=== PATIENT | female | born 1995 | race American Indian/Alaskan Native ===

== ENCOUNTER 2019-05-01 12:14 | Emergency (ER) | payer SELFPAY ==
[2019-05-01 13:49] VITALS: BP 128/71
--- NOTE | 2019-05-01 14:01 | Emergency Department Report ---
Chief Complaint: Upper Respiratory Infection Stated Complaint: SORE THROAT/YASMEEN Time Seen by Provider: 05/01/19 13:51 - HPI History of Present Illness: 23 y/o female presents to ED c/o of spontaneous sore throat which occurs off and on especially when at work at [employer] around a lot of smoke. no fever or hemoptysis. No chest pain or coryza. no wheezing or dysphagia. - ROS Review of Systems: all symptoms negative except as in HPI - Exam Vital Signs: Vital Signs 05/01/19 13:47 Temperature 98.4 F Pulse Rate 83 Respiratory 16 Rate Blood Pressure 128/71 O2 Sat by Pulse 98 Oximetry Physical Exam: GENERAL APPEARANCE: AxOx4, generally well-appearing /F, no acute distress. HEENT: NC, AT. MMM. EOMI, clear conjunctiva, oropharynx clear. pharynx red and mild edema. airway patent NECK: Supple without lymphadenopathy. No stiffness or restricted ROM. HEART: Normal rate and regular rhythm, LUNGS: CTAB, moving air well. No crackles or wheezes are heard. ABDOMEN: Soft, nontender, nondistended with good bowel sounds heard. BACK: No CVAT, no obvious deformity. EXTREMITIES: Without cyanosis, clubbing or edema. NEUROLOGICAL: Grossly nonfocal. Alert and oriented, moving all 4 extremities. CN not formally tested but appear grossly intact. Observed to ambulate with normal gait. Skin: Warm and dry without any rash. MSE screening note: Focused history and physical exam performed. Due to findings the following was ordered: No history of immunocompromise. Nontoxic appearance. Patient euvolemic with no trismus. No airway compromise. Able to tolerate PO. Given History and Exam I have low suspicion for this presentation being caused by [employer], RPA, Lud[place]igs, Epiglottitis or Bacterial Tracheitis, EBV, acute HIV, Strep throat. Rx: Conservative care Disposition: Discharge home with prompt outpatient PCP follow up; return precautions discussed. ED Disposition for MSE Clinical Impression: Pharyngitis Disposition: MED SCREENING EXAM-LEFT Is pt being admited?: No Does the pt Need Aspirin: No Condition: Stable Instructions: Pharyngitis (ED)
== END 2019-05-01 19:45 | disposition left against medical advice (07) ==
LOC: ED 12:14
DX: J02.9 Acute pharyngitis, unspecified (principal); Z91.013 Allergy to seafood

== ENCOUNTER 2020-07-14 14:41 | Emergency (ER) | payer MEDICAID ==
[2020-07-14 15:08] VITALS: BP 104/67
[2020-07-14] MEDS ORDERED: IBUPROFEN 800 MG TAB PO ONE (15:10)
[2020-07-14] MEDS ORDERED: ACETAMINOPHEN 500 MG TAB PO ONE (15:10)
--- NOTE | 2020-07-14 15:13 | Event Note ---
ED Screening Note Date of service: 07/14/20 Time: 15:11 ED Screening Note: 24-year-old immunocompetent female patient presents to the emergency department with complaints of diminished appetite and nausea for 2 days. Prior to the onset of her symptoms, she was experiencing a sore throat, which has largely resolved. However, she still does experience discomfort in her throat with swallowing. She also endorses burning with urination. She has been able to tolerate fluids. No known sick contacts. No current steroid antibiotic use. Patient is noted to be febrile and tachycardic in triage. Tylenol and Motrin ordered. Contrary to the patient's medical record, she does not have heart problems. General: Awake, appropriately interactive, no acute distress. ENT: Small white papules noted to the tonsils bilaterally. No tonsillar enlargement or erythema. Uvula is midline and nonedematous. Neck: Supple. Full range of motion intact. Cardiovascular: Tachycardic. Normal peripheral perfusion. Pulmonary: Clear to auscultation bilaterally. No respiratory distress. Patient is speaking normally without use of accessory muscles. Skin: No apparent rashes or lesions. Neurological: No facial asymmetry. Speech is clear. Follows commands. Patient is alert and oriented. Musculoskeletal: Moves all four extremities spontaneously with normal range of motion. Psych: Cooperative. Appropriate mood and affect. This initial assessment/diagnostic orders/clinical plan/treatment(s) is/are s ubject to change based on patients health status, clinical progression and re- assessment by fellow clinical providers in the ED. Further treatment and workup at subsequent clinical providers discretion. Patient/guardian urged not to elope from the ED as their condition may be serious if not clinically assessed and managed.
[2020-07-14 15:46] LABS: HCG Qualitative,Urine Negative (Negative)
[2020-07-14 15:57] LABS: Bilirubin,Urine NEG (Negative); Blood,Urine NEG (Negative); Color,Urine Yellow (Yellow); Mucus,Urine 1+ /HPF
--- NOTE | 2020-07-14 16:45 | Emergency Department Report ---
ED General Adult HPI - General Chief complaint: Medical Clearance Stated complaint: HEART PROBLEMS/TROUBLE EATING/DRINKING Time Seen by Provider: 07/14/20 16:39 Source: patient Mode of arrival: Ambulatory Limitations: No Limitations - Related Data Previous Rx's Medication Instructions Recorded Last Taken Type Ibuprofen [Motrin] 800 mg PO Q8HR PRN #20 tablet 09/21/19 Unknown Rx cephALEXin [Keflex] 500 mg PO Q12HR 10 Days cap 07/14/20 Unknown Rx Allergies Allergy/AdvReac Type Severity Reaction Status Date / Time shellfish derived Allergy Swelling Verified 07/14/20 15:04 ED Review of Systems ROS: Stated complaint: HEART PROBLEMS/TROUBLE EATING/DRINKING Other details as noted in HPI ED Past Medical Hx - Past Medical History Previous Medical History?: No - Surgical History Past Surgical History?: No - Social History Smoking Status: Never Smoker Substance Use Type: None - Medications Home Medications: Home Medications Medication Instructions Recorded Confirmed Last Taken Type Ibuprofen [Motrin] 800 mg PO Q8HR PRN #20 tablet 09/21/19 Unknown Rx cephALEXin [Keflex] 500 mg PO Q12HR 10 Days cap 07/14/20 Unknown Rx ED Physical Exam - General Limitations: No Limitations ED Course Vital Signs 07/14/20 15:05 Temperature 100.4 F H Pulse Rate 105 H Respiratory 16 Rate Blood Pressure 104/67 O2 Sat by Pulse 99 Oximetry Critical care attestation.: If time is entered above; I have spent that time in minutes in the direct care of this critically ill patient, excluding procedure time. ED Disposition Clinical Impression: Strep pharyngitis Urinary tract infection Qualifiers: Urinary tract infection type: site unspecified Hematuria presence: with hematuria Qualified Code(s): N39.0 - Urinary tract infection, site not specified; R31.9 - Hematuria, unspecified Disposition: DC-01 TO HOME OR SELFCARE Is pt being admited?: No Does the pt Need Aspirin: No Condition: Stable Instructions: Strep Throat, Adult, [id number], Urinary Tract Infection, Adult Additional Instructions: Take Tylenol every 4 hours and Motrin every 8 hours as needed for pain/fever. Take Keflex with food as directed. Salt water gargles as needed. Rest. Drink plenty fluids. Wash hands frequently to prevent disease transmission. Do not share food or drinks with others. Follow-up with your primary care provider this week. Call tomorrow to schedule an appointment. Return to the emergency department immediately for new or worsening symptoms. Specifically, return to the emergency department immediately for difficulty breathing, worsening sore throat, dehydration, mental status changes, difficulty using the bathroom, back pain, or any other concerns. Prescriptions: cephALEXin [Keflex] 500 mg PO Q12HR 10 Days cap Referrals: DANETTE CORONADO MD [Staff Physician] - 3-5 Days Time of Disposition: 16:45
--- NOTE | 2020-07-14 17:38 | Emergency Department Report ---
ED General Adult HPI - General Chief complaint: Medical Clearance Stated complaint: HEART PROBLEMS/TROUBLE EATING/DRINKING Time Seen by Provider: 07/14/20 16:39 Source: patient Mode of arrival: Ambulatory Limitations: No Limitations - History of Present Illness Initial comments: 24-year-old immunocompetent female patient presents to the emergency department with complaints of diminished appetite and nausea for 2 days. Prior to the onset of her symptoms, she was experiencing a sore throat, which has largely resolved. However, she still does experience discomfort in her throat with swallowing. She also endorses burning with urination. She has been able to tolerate fluids. No known sick contacts. No current steroid antibiotic use. No recent travel. Denies neck stiffness, headache, ear pain, wheezing, shortness of breath, vomiting, diarrhea, abdominal pain, back pain. Denies all other complaints at this time. Severity scale (0 -10): 0 - Related Data Previous Rx's Medication Instructions Recorded Last Taken Type Ibuprofen [Motrin] 800 mg PO Q8HR PRN #20 tablet 09/21/19 Unknown Rx Phenazopyridine HCl [Azo Urinary 2 tab PO TID 2 Days tablet 07/14/20 Unknown Rx Pain Relief] cephALEXin [Keflex] 500 mg PO Q12HR 10 Days cap 07/14/20 Unknown Rx Allergies Allergy/AdvReac Type Severity Reaction Status Date / Time shellfish derived Allergy Swelling Verified 07/14/20 15:04 ED Review of Systems ROS: Stated complaint: HEART PROBLEMS/TROUBLE EATING/DRINKING Other details as noted in HPI Other: GENERAL: Positive for fever and diminished appetite. ENT: Positive for sore throat. CARDIOVASCULAR: Negative for chest pain, palpitations, lower extremity swelling. PULMONARY: Negative for cough, dyspnea, wheezing, orthopnea, cyanosis. GASTROINTESTINAL: Positive for nausea. GENITOURINARY: Positive for dysuria. MUSCULOSKELETAL: Negative for joint pain, joint swelling, myalgias, back pain, neck pain. NEUROLOGICAL: Negative for headache, seizure, syncope, paresthesias, weakness. INTEGUMENTARY: Negative for erythema, rash, diaphoresis, laceration, ecchymosis. HEMATOLOGICAL: Negative for hemoptysis, hematemesis, hematochezia, hematuria. PSYCHIATRIC: Negative for hallucinations, suicidal ideation, homicidal ideation, anxiety, depression. ED Past Medical Hx - Past Medical History Previous Medical History?: No - Surgical History Past Surgical History?: No - Social History Smoking Status: Never Smoker Substance Use Type: None - Medications Home Medications: Home Medications Medication Instructions Recorded Confirmed Last Taken Type Ibuprofen [Motrin] 800 mg PO Q8HR PRN #20 tablet 09/21/19 Unknown Rx Phenazopyridine HCl [Azo Urinary 2 tab PO TID 2 Days tablet 07/14/20 Unknown Rx Pain Relief] cephALEXin [Keflex] 500 mg PO Q12HR 10 Days cap 07/14/20 Unknown Rx ED Physical Exam - General Limitations: No Limitations - Other Other exam information: General: Awake, appropriately interactive, no acute distress. ENT: Small white papules noted to the tonsils bilaterally. No tonsillar enlargement or erythema. Uvula is midline and nonedematous. Handling secretions without difficulty. Neck: Supple. Full range of motion intact. Cardiovascular: Tachycardic. Normal peripheral perfusion. Pulmonary: Clear to auscultation bilaterally. No respiratory distress. Patient is speaking normally without use of accessory muscles. Abdomen: Soft, non-tender, non-distended. Skin: No apparent rashes or lesions. Neurological: No facial asymmetry. Speech is clear. Follows commands. Patient is alert and oriented. Musculoskeletal: Moves all four extremities spontaneously with normal range of motion. Psych: Cooperative. Appropriate mood and affect. ED Course Vital Signs 07/14/20 07/14/20 07/14/20 15:05 17:01 17:04 Temperature 100.4 F H 100.1 F H Pulse Rate 105 H 114 H Respiratory 16 18 Rate Blood Pressure 104/67 O2 Sat by Pulse 99 Oximetry 07/14/20 17:41 Temperature Pulse Rate 100 H Respiratory 18 Rate Blood Pressure O2 Sat by Pulse Oximetry ED Medical Decision Making - Medical Decision Making Differential diagnosis including but not limited to: strep pharyngitis, viral pharyngitis, otitis media, peritonsillar abscess, epiglottitis, pyelonephritis, nephrolithiasis, urinary tract infection, Patient presents to emergency department with complaints of sore throat, decreased appetite, and urinary symptoms. She is noted to be febrile and tachycardic in triage; Tylenol and Motrin were ordered. On evaluation, patient is stable and symptoms have improved. Repeat heart rate within normal limits. No hypoxia, no respiratory distress. Handling secretions without difficulty. Strep test positive. Urinalysis suggestive of UTI. test is negative. She appears clinically well-hydrated. Patient will be treated with Keflex for both diagnoses. She has requested symptomatic treatment for bladder relief. Patient will be discharged home to follow-up with her primary care provider this week. She expressed understanding and is agreeable to plan of care. Disease transmission precautions discussed. Strict return precautions provided. NOTE: Contrary to the patient's medical record, she does not have heart problems. Repeat exam is unremarkable and benign. History, exam, diagnostic testing, and current condition do not suggest worrisome pathology to warrant further testing, continued ED treatment, admission, or surgical evaluation at this point. Given the low probability of a significant medical illness, it would be more likely to result in harm than benefit to perform further testing at this stage. Discussed findings, presumptive diagnosis, need for follow-up and specific signs/symptoms that should prompt immediate return to the emergency department. Instructions were explained in detail to the patient in addition to giving written discharge information. Patient expressed understanding and was given the opportunity to ask questions, all of which were satisfactorily answered prior to discharge home. Critical care attestation.: If time is entered above; I have spent that time in minutes in the direct care of this critically ill patient, excluding procedure time. ED Disposition Clinical Impression: Strep pharyngitis Urinary tract infection Qualifiers: Urinary tract infection type: site unspecified Hematuria presence: with hematuria Qualified Code(s): N39.0 - Urinary tract infection, site not specified Disposition: DC- TO HOME OR SELFCARE Is pt being admited?: No Does the pt Need Aspirin: No Condition: Stable Instructions: Strep Throat, Adult, [id number], Urinary Tract Infection, Adult Additional Instructions: Take Tylenol every 4 hours and Motrin every 8 hours as needed for pain/fever. Take Keflex with food as directed. Salt water gargles as needed. Rest. Drink plenty fluids. Wash hands frequently to prevent disease transmission. Do not share food or drinks with others. Follow-up with your primary care provider this week. Call tomorrow to schedule an appointment. Return to the emergency department immediately for new or worsening symptoms. Specifically, return to the emergency department immediately for difficulty breathing, worsening sore throat, dehydration, mental status changes, difficulty using the bathroom, back pain, or any other concerns. Prescriptions: Phenazopyridine HCl [Azo Urinary Pain Relief] 2 tab PO TID 2 Days tablet cephALEXin [Keflex] 500 mg PO Q12HR 10 Days cap Referrals: DANETTE CORONADO MD [Staff Physician] - 3-5 Days
== END 2020-07-14 17:41 | disposition home or self-care (01) ==
LOC: ED 14:41
DX: N39.0 Urinary tract infection, site not specified (principal); J02.0 Streptococcal pharyngitis; Z79.1 Long term (current) use of non-steroidal anti-inflammatories (NSAID); Z79.899 Other long term (current) drug therapy; Z91.013 Allergy to seafood
CPT/HCPCS: 81001; 81025; 87086; 87430